=== PATIENT | female | born 1950 | race Caucasian/White ===

== ENCOUNTER → 2018-01-20 | Outpatient (CLI) | payer MEDICARE | END | disposition home or self-care (01) | LOC: CFH 09:16 | PROVIDERS: ATTEND Family Medicine | DX: Z12.31 Encounter for screening mammogram for malignant neoplasm of breast (principal); Z80.3 Family history of malignant neoplasm of breast | CPT/HCPCS: 77063; 77067 ==

== ENCOUNTER 2018-07-29 10:20 | Day surgery (SDC) | payer MEDICARE ==
[~2018-07-29] VITALS: Ht 182.9 cm; Wt 105.5 kg
[~2018-07-29 10:20] MED LIST: ATEN50TA41 PO; ATOR40TA78 PO; ESTR1PAT25 TD; losartan/HCTZ PO
[2018-07-29 10:40] VITALS: BP 134/91
[2018-07-29] MEDS ORDERED: LACTATED RINGERS 1,000 ML IV SCH (10:47)
[2018-07-29] MEDS ORDERED: BUPIVACAINE/PF-EPI 0.5% 1:200K ONE (12:29)
[2018-07-29] MEDS ORDERED: FENTANYL PF 250 MCG/5ML ONE (12:34)
[2018-07-29] MEDS ORDERED: MIDAZOLAM 1 MG/ML, 2ML ONE (12:34)
[2018-07-29] MEDS ORDERED: SUCCINYLCHOLINE 20 MG/ML, 10ML ONE ×2 (12:36)
[2018-07-29] MEDS ORDERED: ROCURONIUM 10MG/ML,5ML ONE (12:36)
[2018-07-29] MEDS ORDERED: DEXAMETHASONE 4 MG/ML, 1ML ONE ×4 (12:36→12:37)
[2018-07-29] MEDS ORDERED: PROPOFOL 10 MG/ML, 20ML ONE (12:36)
[2018-07-29] MEDS ORDERED: CEFAZOLIN 1,000 MG ONE ×2 (12:36)
[2018-07-29] MEDS ORDERED: ONDANSETRON 2MG/ML, 2ML ONE (12:43)
[2018-07-29] MEDS ORDERED: KETOROLAC 30 MG/1 ML ONE (12:43)
[2018-07-29] MEDS ORDERED: ACETAMINOPHEN 325 MG TABLET PO PRN (13:00)
[2018-07-29] MEDS ORDERED: OXYcodone 5 MG/5 ML ORAL.SOL UDC PO PRN (13:00)
[2018-07-29] MEDS ORDERED: HALOPERIDOL 5 MG/ML IV PRN (13:00)
[2018-07-29] MEDS ORDERED: PROMETHAZINE 12.5 MG SUPP PR PRN (13:00)
[2018-07-29] MEDS ORDERED: MEPERIDINE/PF 25MG/0.5ML IVPush PRN (13:00)
[2018-07-29] MEDS ORDERED: PROMETHAZINE 25 MG/ML, 1ML IV PRN (13:00)
[2018-07-29] MEDS ORDERED: ONDANSETRON ODT 8 MG PO PRN (13:00)
[2018-07-29] MEDS ORDERED: EPHEDRINE 50 MG/ML, 1ML IVPush PRN (13:00)
[2018-07-29] MEDS ORDERED: ALBUTEROL SULFATE 2.5 MG/3 ML NPPB PRN (13:00)
[2018-07-29] MEDS ORDERED: hydrALAzine 20 MG/ML, 1ML IV PRN (13:00)
[2018-07-29] MEDS ORDERED: LABETALOL 5MG/ML, 20ML IV PRN (13:00)
[2018-07-29] MEDS ORDERED: MIDAZOLAM 1 MG/ML, 2ML IV PRN (13:00)
[2018-07-29] MEDS ORDERED: DIAZEPAM 5 MG/ML, 2ML IVPush PRN (13:00)
[2018-07-29] MEDS ORDERED: HYDROmorphone 2 MG/ML, 1ML IVPush PRN (13:00)
[2018-07-29] MEDS ORDERED: MORPHINE SULFATE 4 MG/ML, 1ML IVPush PRN (13:00)
[2018-07-29] MEDS ORDERED: ONDANSETRON 2MG/ML, 2ML IV PRN (13:00)
[2018-07-29] MEDS ORDERED: FENTANYL PF 100 MCG/2ML ONE (13:40)
[2018-07-29] MEDS ORDERED: OXYcodone 5 MG/5 ML ORAL.SOL UDC ONE (13:41)
[2018-07-29] MEDS: FENTANYL PF 100 MCG/2ML IV PRN ×2 (13:45→13:50)
[2018-07-29] MEDS ORDERED: MORPHINE SULFATE 4 MG/ML, 1ML ONE (13:46)
== END 2018-07-29 16:50 | disposition home or self-care (01) ==
LOC: OUT 10:20
PROVIDERS: ATTEND Surgery
DX: K80.10 Calculus of gallbladder with chronic cholecystitis without obstruction (principal); I10 Essential (primary) hypertension; E78.5 Hyperlipidemia, unspecified; Z72.89 Other problems related to lifestyle; Z98.890 Other specified postprocedural states; Z90.710 Acquired absence of both cervix and uterus; Z98.51 Tubal ligation status
CPT/HCPCS: 47562; 88304; J0330; J0690; J1100; J1885; J2250; J2405; J2704; J3010; J7120

== ENCOUNTER → 2019-07-14 | Outpatient (CLI) | payer MEDICARE | END | disposition home or self-care (01) | LOC: CFH 09:20 | PROVIDERS: ATTEND Physician Assistant Medical | DX: Z13.820 Encounter for screening for osteoporosis (principal); N95.8 Other specified menopausal and perimenopausal disorders | CPT/HCPCS: 77080 ==

== ENCOUNTER → 2020-06-06 | Outpatient (CLI) | payer MEDICARE | END | disposition home or self-care (01) | LOC: CFH 08:51 | PROVIDERS: ATTEND Family Medicine | DX: Z12.31 Encounter for screening mammogram for malignant neoplasm of breast (principal) | CPT/HCPCS: 77063; 77067 ==